=== PATIENT | female | born 1970 | race Caucasian/White ===

== ENCOUNTER → 2017-09-14 | Day surgery (SDC) | payer OTHER ==
--- NOTE | 2017-09-15 11:19 | OP ---
DATE OF OPERATION: 09/14/2017 PREOPERATIVE DIAGNOSES: Left breast microcalcifications, left breast density. POSTOPERATIVE DIAGNOSES: Left breast microcalcifications, left breast density. PROCEDURE: Left breast stereotactic needle biopsy with clip. SURGEON: Riddhi Mejia MD ANESTHESIA: Local. COMPLICATIONS: None. This is a sterile procedure. INDICATIONS FOR PROCEDURE: The patient presented for a screening mammography that noted a density seen only on the left CC view centrally, as well as fine, clustering microcalcifications in the lower outer left breast. The biopsy of both was recommended. The procedure was discussed with her, including the need for a clip. PROCEDURE IN DETAIL: The patient was brought to [facility]. I laid her prone on the low-radiation table. Using the caudal approach, the calcifications that were very faint were visualized in the lower outer breast. The density, however, was not visualized on the stereotactic table, despite several different attempts. Therefore, I elected to go ahead with the biopsy of the calcifications only. A target was chosen. There was a positive stroke margin. Using Betadine and 1% lidocaine, a 10-gauge Suros device was used to take several cores from this area. A specimen radiograph seemed to have faint cores within it, though they were very faint and hard to see, and then she had a post-biopsy hematoma though. So, we repeated the x-ray and the calcifications were no longer seen on the x-ray. Therefore, at this point, I sent the tissue to Pathology for analysis. Then, we tried different maneuvers to see if the calcifications could be recognized with the lateral or the caudal approach; they were not. There were no other calcifications that I could see as a target at this time. I will await the pathology from the biopsy and decide whether she needs a surgical excision or not. She tolerated the procedure well and [facility]. RIDDHI MEJIA M.D. [id number]
--- NOTE | 2017-09-15 16:01 | PATH ---
Surgical Pathology Report Patient Name: PEDRO HOSKINS [facility]. Rec. #: [id number] /Age/Gender: 1970 (Age: 47) / F Account: [id number] Location: [facility] Taken: 09/14/2017 Received: 09/14/2017 Reported: 09/15/2017 Physicians: Riddhi Lester M.D. Specimen(s) Received A: LEFT BREAST SPECIMEN WITH CALCIFICATIONS B: LEFT BREAST SPECIMEN WITHOUT CALCIFICATIONS Clinical History Nonpalpable lesion Mammographic findings: Microcalcification, suspicious Final Diagnosis A. BREAST, LEFT, WITH CALCIFICATIONS, STEREOTACTIC BIOPSY: BENIGN BREAST TISSUE SHOWING COLUMNAR CELL CHANGE WITH FEW ASSOCIATED CALCIFICATIONS. B. BREAST, LEFT, WITHOUT CALCIFICATIONS, STEREOTACTIC BIOPSY: BENIGN BREAST TISSUE. Electronically Signed Genevieve Nair M.D. Gross Description A. Received in formalin labeled "left breast with calcifications," is a 2.2 x 2.0 x 0.3 cm aggregate of sifuentes-yellow, irregular to cylindrical portions of fibroadipose tissue. The formalin is filtered and the specimen is entirely submitted in one cassette. B. Received in formalin labeled "left breast without calcifications," is a 1.5 x 1.1 x 0.3 cm aggregate of sifuentes-yellow, irregular to cylindrical portions of fibroadipose tissue. The formalin is filtered and the specimen is entirely submitted in one cassette. Time to formalin fixation: 5 minutes Total formalin fixation time: approximately 6 hours. 09/14/201709/14/2017
== END | disposition home or self-care (01) ==
LOC: FMAMMOTONE 09:27
PROVIDERS: ATTEND Surgery
PROC: 0HBU3ZX Excision of Left Breast, Percutaneous Approach, Diagnostic (ICD-10-PCS; principal; 2017-09-14)
DX: N64.89 Other specified disorders of breast (principal); R92.1 Mammographic calcification found on diagnostic imaging of breast
CPT/HCPCS: 19081; 87899; 88305-TC; A4648

== ENCOUNTER → 2018-04-12 | Day surgery (SDC) | payer OTHER ==
--- NOTE | 2018-04-12 09:38 | OP ---
DATE OF OPERATION: 04/12/2018 PREOPERATIVE DIAGNOSIS: Abnormal left mammography. POSTOPERATIVE DIAGNOSIS: Abnormal left mammography. PROCEDURE: Left stereotactic needle biopsy with clip. SURGEON: Riddhi Mejia MD ANESTHESIA: Local. COMPLICATIONS: None. This was a sterile procedure. INDICATIONS FOR PROCEDURE: Patient presented with a screening mammogram that noted increasing microcalcifications in an area that I had biopsied in August 2017 as benign and recommendation was a repeat biopsy of the area. The procedure was discussed with all the questions answered. PROCEDURE IN DETAIL: Patient brought to [facility] in [place]. Placed prone on the Lor[place] table. Using the caudal approach the calcifications in the lower outer left breast were identified. A sterile prep was obtained. A target was chosen. There was a positive stroke margin. Using Betadine and 1% lidocaine a petite Suros needle was used to take several cores from this area. Cores showed calcifications within them. These were handled using the calcification protocol. A bowtie-shaped clip was deployed in the area. Hemostasis was assured with direct pressure. The incision was closed with Steri-Strips. She tolerated the procedure well and left the breast imaging center in good condition. RIDDHI MEJIA M.D. [id number]
--- NOTE | 2018-04-13 13:03 | PATH ---
Surgical Pathology Report Patient Name: PEDRO HOSKINS [facility]. Rec. #: [id number] /Age/Gender: 1970 (Age: 47) / F Account: [id number] Location: [facility] Taken: 04/12/2018 Received: 04/12/2018 Reported: 04/13/2018 Physicians: Riddhi Lestre M.D. Specimen(s) Received A: LEFT BREAST SPECIMEN WITH CALCIFICATIONS B: LEFT BREAST SPECIMEN WITHOUT CALCIFICATIONS Clinical History Nonpalpable lesion Mammographic findings: Microcalcification, suspicious Final Diagnosis A. BREAST, LEFT, WITH CALCIFICATIONS, STEREOTACTIC BIOPSY: ATYPICAL DUCTAL HYPERPLASIA (ADH) AND FLAT EPITHELIAL ATYPIA (FEA) WITH ASSOCIATED CALCIFICATIONS. B. BREAST, LEFT, WITHOUT CALCIFICATIONS, STEREOTACTIC BIOPSY: ATYPICAL DUCTAL HYPERPLASIA (ADH) AND FLAT EPITHELIAL ATYPIA (FEA) WITH ASSOCIATED CALCIFICATIONS. Electronically Signed Genevieve Nair M.D. Gross Description A. Received in formalin labeled "left breast with calcifications," are 4 sifuentes-yellow, cylindrical portions of fibroadipose tissue ranging from 0.6-1.0 cm in length and averaging 0.3 cm in diameter. The specimens are submitted in toto in one cassette. B. Received in formalin labeled "left breast without calcifications," are 8 sifuentes-yellow, cylindrical portions of fibroadipose tissue ranging from 0.5-1.5 cm in length and averaging 0.3 cm in diameter. The specimens are submitted in toto in one cassette. Time to formalin fixation: 5 minutes Total formalin fixation time: Approximately 9 hours. /04/12/2018 [facility]04/12/2018
== END | disposition home or self-care (01) ==
LOC: FMAMMOTONE 08:18
PROVIDERS: ATTEND Surgery
PROC: 0HBU3ZX Excision of Left Breast, Percutaneous Approach, Diagnostic (ICD-10-PCS; principal; 2018-04-12)
DX: N60.82 Other benign mammary dysplasias of left breast (principal); N60.92 Unspecified benign mammary dysplasia of left breast; N64.89 Other specified disorders of breast; R92.8 Other abnormal and inconclusive findings on diagnostic imaging of breast
CPT/HCPCS: 19081; 87899; 88305-TC; A4648

== ENCOUNTER 2018-06-09 07:15 | Day surgery (SDC) | payer OTHER ==
[2018-06-08 18:40] VITALS: BMI 29.1
[2018-06-09] MEDS ORDERED: PROMETHAZINE HCL 25 MG/1 ML VIAL IVPB PRN (10:16)
[2018-06-09] MEDS ORDERED: ONDANSETRON 4 MG/2 ML VIAL IVPUSH PRN (10:16)
[2018-06-09] MEDS ORDERED: MIDAZOLAM HCL 2 MG/2 ML SINGLE DOSE VIAL ONE (10:24)
[2018-06-09] MEDS ORDERED: PROPOFOL 20 ML ONE (10:25)
[2018-06-09] MEDS ORDERED: LACTATED RINGERS SOLUTION 1,000 ML IV SCH (10:30)
[2018-06-09] MEDS ORDERED: ceFAZolin SODIUM 1 GM VIAL IVPB ONE (10:32)
[2018-06-09] MEDS ORDERED: ceFAZolin SODIUM 1 GM VIAL ONE (10:34)
[2018-06-09] MEDS ORDERED: LIDOCAINE HCL 1%, 10 MG/ML (50 mL VIAL) INF ONE ×2 (10:41)
[2018-06-09 12:49] VITALS: TEMP 97.7
--- NOTE | 2018-06-09 13:33 | OP ---
DATE OF OPERATION: 06/09/2018 PREOPERATIVE DIAGNOSIS: Left breast atypical duct hyperplasia. POSTOPERATIVE DIAGNOSIS: Left breast atypical duct hyperplasia. PROCEDURE: Left breast wire-localized lumpectomy. SURGEON: Riddhi Lester MD ANESTHESIA: Local IV sedation. ESTIMATED BLOOD LOSS: Minimal. COMPLICATIONS: None. This was a sterile procedure. INDICATIONS FOR PROCEDURE: Patient presented with a screening mammography that noted increasing microcalcifications in the lower outer left breast. A stereotactic needle biopsy showed atypical duct hyperplasia. My recommendation was then excision to make sure there is no further upgrade in the lesion. The procedure was discussed with all questions answered. PROCEDURE IN DETAIL: Patient was brought to [facility] in [place], taken into the operating room, and after IV sedation and IV antibiotics, the left breast was prepped in the usual sterile fashion. The area in the lower outer left breast was anesthetized with 1% lidocaine without epinephrine. A radial incision was made in the left breast, 5 o'clock location. A wire was used as a guide to get down to the area, and this was excised en bloc, and that tacked with long sutures lateral, short sutures superior. Sent for specimen radiograph. Specimen radiograph showed the clip and wire to be intact within the specimen. This was then sent as a left breast lumpectomy to Pathology. Hemostasis was assured with electrocautery. The parenchyma was approximated with interrupted 2-0 Vicryl. Skin approximated with interrupted 3-0 Vicryl and running 4-0 Prolene. A sterile dressing with Tegaderm and 4x4s was applied. She tolerated the procedure well and was taken to recovery in good condition. Bon [id number]
[2018-06-09 17:56] VITALS: BP 113/75; PULSE 71
--- NOTE | 2018-06-14 14:52 | PATH ---
Surgical Pathology Report Patient Name: PEDRO HOSKINS [facility]. Rec. #: [id number] /Age/Gender: 1970 (Age: 47) / F Account: [id number] Location: [facility] Taken: 06/09/2018 Received: 06/09/2018 Reported: 06/14/2018 Physicians: Riddhi Lester M.D. Specimen(s) Received LEFT BREAST WIDE EXCISION Clinical History Left breast atypia Final Diagnosis BREAST, LEFT, WIDE EXCISION: DUCTAL CARCINOMA IN SITU (DCIS), PAPILLARY, MICROPAPILLARY, FLAT AND FOCAL CRIBRIFORM TYPES, INTERMEDIATE NUCLEAR GRADE, WITH FOCAL NECROSIS AND ASSOCIATED MICROCALCIFICATIONS, ARISING IN A BACKGROUND OF FLAT EPITHELIAL ATYPIA AND ATYPICAL DUCTAL HYPERPLASIA. DCIS PRESENT IN FIVE OF TEN SLIDES (5/10). DCIS MEASURES 7 MM IN GREATEST DIMENSION, MICROSCOPICALLY. DCIS IS < 1MM FROM CLOSEST DEEP AND INFERIOR MARGINS, REMAINDER OF MARGINS ARE WIDELY FREE. PRIOR BIOPSY SITE CHANGES ARE PRESENT. REMAINDER OF BREAST TISSUE SHOWS PROLIFERATIVE FIBROCYSTIC CHANGES INCLUDING STROMAL FIBROSIS, MICROCYSTS, COLUMNAR CELL CHANGE, USUAL DUCTAL HYPERPLASIA, APOCRINE METAPLASIA, SCLEROSING ADENOSIS, AND DUCT ECTASIA. PATHOLOGIC STAGE (pTNM): pTis pNx SEE SUMMARY BELOW. Comments DCIS of the Breast: Surgical Pathology Cancer Case Summary (Based on AJCC TNM 8 th edition) Procedure _X_ Excision (less than total mastectomy) Specimen Laterality _X__ Left Size (Extent) of DCIS Estimated size (extent) of DCIS (greatest dimension using gross and microscopic evaluation): at least (millimeters) _7__ mm Number of blocks with DCIS: _5__ Number of blocks examined: _10__ Histologic Type _X__ Ductal carcinoma in situ Architectural Patterns _X__ Cribriform _X__ Micropapillary _X__ Papillary _X__ Other: Flat Nuclear Grade _X_ Grade II (intermediate) Necrosis _X__ Present, focal (small foci or single cell necrosis) Margins _X__ Uninvolved by DCIS Distance from closest margin (millimeters: <1 mm Specify closest margin: Deep and inferior Regional Lymph Nodes _X__ No lymph nodes submitted or found Pathologic Stage Classification (pTNM, AJCC 8th Edition) Primary Tumor (pT) _X__ pTis (DCIS): Ductal carcinoma in situ Regional Lymph Nodes (pN) _X_Nx: Regional lymph nodes cannot be assessed Microcalcifications _X__ Present in DCIS Results of Estrogen Receptor (ER) and Progesterone Receptor (AK) studies performed on block "4" at [facility] are as follows: ER (clone [id number] mouse monoclonal antibody by [employer]): 95% nuclear staining with moderate intensity (Positive). AK (clone16 mouse monoclonal antibody by [employer]): 90% nuclear staining with strong intensity (Positive). Positive and negative controls (internal if applicable) show appropriate results. Formalin fixation and cold ischemic times are within current ASCO/CAP recommendations for ER, AK and Her2 testing. Electronically Signed Leny Franco M.D. Gross Description Received in formalin, labeled "left breast wire localized excision," is a 4.5 x 3.3 x 1.3 cm. sifuentes-yellow, irregular, portion of fibroadipose tissue with a needle localization wire present. There is a short suture marking the superior aspect and a long suture marking the lateral aspect, per the surgeon. There is no skin or nipple present. The specimen is inked as follows: superior and lateral blue; inferior green; medial yellow; anterior red; deep black. The specimen is serially sectioned from medial to lateral. Sectioning reveals a focus of hemorrhage, consistent with a previous biopsy site as well as abundant dense, white fibrous tissue. No discrete masses are identified. Certified Activities Director sections are submitted in 10 cassettes as follows: [id number] and sequentially submitted fibrous tissue from medial to lateral (each with inferior, anterior and deep margins); 8-medial margin; 9-lateral margin; 10-superior margin. Total formalin fixation time: Approximately 6 hours 06/09/201806/09/2018
== END 2018-06-09 14:00 | disposition home or self-care (01) ==
LOC: JASU-SURG 07:15
PROVIDERS: ATTEND Surgery
PROC: 0HBU0ZZ Excision of Left Breast, Open Approach (ICD-10-PCS; principal; 2018-06-09 10:00)
DX: N60.92 Unspecified benign mammary dysplasia of left breast (principal)
CPT/HCPCS: 19281; 84703; 88307-TC; 88342-TC; 94760

== ENCOUNTER 2018-10-13 07:16 | Day surgery (SDC) | payer OTHER ==
[2018-10-13 08:02] VITALS: BMI 25.4
[2018-10-13] MEDS ORDERED: ceFAZolin SODIUM 1 GM VIAL ONE (11:05)
[2018-10-13] MEDS ORDERED: PROPOFOL 20 ML ONE (11:05)
[2018-10-13] MEDS ORDERED: MIDAZOLAM HCL 2 MG/2 ML SINGLE DOSE VIAL ONE (11:05)
[2018-10-13] MEDS ORDERED: LIDOCAINE HCL 1%, 10 MG/ML (20ML VIAL) ONE (11:11)
[2018-10-13] MEDS ORDERED: ceFAZolin SODIUM 1 GM VIAL IVPB ONE (11:24)
[2018-10-13] MEDS ORDERED: LIDOCAINE HCL 1%, 10 MG/ML (20ML VIAL) NR ONE ×2 (11:25)
[2018-10-13] MEDS ORDERED: oxyCODONE HCL 5 MG TABLET PO PRN (11:56)
[2018-10-13] MEDS ORDERED: ONDANSETRON 4 MG/2 ML VIAL IVPUSH PRN (11:56)
[2018-10-13] MEDS ORDERED: LACTATED RINGERS SOLUTION 1,000 ML IV SCH (12:00)
[2018-10-13 12:10] VITALS: TEMP 98.2
--- NOTE | 2018-10-13 13:35 | OP ---
DATE OF OPERATION: 10/13/2018 PREOPERATIVE DIAGNOSIS: Left breast ductal carcinoma in situ. POSTOPERATIVE DIAGNOSIS: Left breast ductal carcinoma in situ. PROCEDURE: Left breast re-excision lumpectomy. SURGEON: Riddhi Lester MD ANESTHESIA: Local and IV sedation. ESTIMATED BLOOD LOSS: Minimal. COMPLICATIONS: None. This was a sterile procedure. Patient had a lumpectomy for atypia on a needle biopsy that Pathology shows a 7-mm DCIS with a close inferior and posterior margin. My recommendation was re-excision lumpectomy. The procedure was discussed with all the questions answered. PROCEDURE IN DETAIL: Patient was brought to [facility] in [place], taken into the operating room, and after IV sedation and IV antibiotics, the left breast was prepped in the usual sterile fashion. The area in the inferior left breast where she had the prior incision was anesthetized with 1% lidocaine without epinephrine. The prior incision was sharply reopened, and a complete re-excision lumpectomy was performed to make sure additional tissue was taken posterior and inferiorly, where she had the close margin. This tissue was then marked with a long stitch lateral and a short stitch superior, sent as a left breast lumpectomy. Hemostasis was assured with electrocautery. The parenchyma was approximated with interrupted 2-0 Vicryl, skin approximated with interrupted 3-0 Vicryl, running 4-0 Prolene. Sterile dressings with Tegaderm and 4x4s were applied. She tolerated the procedure well, was taken to recovery in good condition. Bon [id number]
[2018-10-13 15:59] VITALS: BP 103/58; PULSE 80
--- NOTE | 2018-10-16 15:51 | PATH ---
Surgical Pathology Report Patient Name: PEDRO HOSKINS [facility]. Rec. #: [id number] /Age/Gender: 1970 (Age: 48) / F Account: [id number] Location: [facility] Taken: 10/12/2018 Received: 10/13/2018 Reported: 10/16/2018 Physicians: Riddhi Lester M.D. Specimen(s) Received LEFT BREAST LUMPECTOMY Clinical History Left breast atypia Final Diagnosis BREAST, LEFT, LUMPECTOMY: ATYPICAL DUCTAL HYPERPLASIA AND FLAT EPITHELIAL ATYPIA WITH ASSOCIATED MICROCALCIFICATIONS IN A BACKGROUND OF FIBROCYSTIC CHANGES INCLUDING STROMAL FIBROSIS, MICROCYSTS, COLUMNAR CELL CHANGES, AND ADENOSIS. CHANGES OF PREVIOUS PROCEDURE/BIOPSY NOTED. Electronically Signed Leny Franco M.D. Gross Description Received in formalin, labeled "left breast lumpectomy," is a 4.5 x 3.1 x 1.6 cm. sifuentes-yellow, irregular, portion of fibroadipose tissue. There is no needle localization wire present. There is a short suture marking the superior aspect and a long suture marking the lateral aspect, per the surgeon. There is no skin or nipple present. The specimen is inked as follows: superior and lateral blue; inferior green; medial yellow; anterior red; deep black. The specimen is serially sectioned from superior to inferior. Sectioning reveals foci of dense, white, focally firm fibrous tissue. No definitive mass is identified. The specimen is entirely and sequentially submitted in 8 cassettes with the superior margin in cassette 1 and the inferior margin in cassette 8. Total formalin fixation time: Approximately 6 hours 10/13/201810/13/2018
== END 2018-10-13 14:10 | disposition home or self-care (01) ==
LOC: JASU-SURG 07:16
PROVIDERS: ATTEND Surgery
PROC: 0HBU0ZZ Excision of Left Breast, Open Approach (ICD-10-PCS; principal; 2018-10-13 10:00)
DX: D05.92 Unspecified type of carcinoma in situ of left breast (principal)
CPT/HCPCS: 19281; 84703; 88307-TC